=== PATIENT | female | born 1970 | race Caucasian/White ===

== ENCOUNTER 2018-08-14 19:04 | Emergency (ER) | payer OTHER ==
[~2018-08-14] VITALS: Ht 152.4 cm; Wt 108.9 kg
[2018-08-14] MEDS ORDERED: TOPAMAX50 MG PO (19:17)
[2018-08-14] MEDS ORDERED: ADDERALL 20 MG20 M1 PO (19:17)
[2018-08-14] MEDS ORDERED: CYMBALTA60 MG PO (19:17)
[2018-08-14] MEDS ORDERED: LAMICTAL200 MG PO (19:17)
[2018-08-14 20:58] VITALS: BP 139/92
[2018-08-15] MEDS ORDERED: FA-80.8 MG PO (13:43)
[2018-08-15] MEDS ORDERED: BUSPIRONE HCL10 MG PO (13:43)
[2018-08-15] MEDS ORDERED: NORCO 5-325 TA1 EACH PO (13:57)
[2018-08-15] MEDS ORDERED: NABUMETONE 750750 M1 PO (13:57)
[2018-08-15] MEDS ORDERED: CLEOCIN HCL300 MG PO (13:57)
== END 2018-08-14 20:58 | disposition left against medical advice (07) ==
LOC: M.ERS 19:04
DX: Z53.21 Procedure and treatment not carried out due to patient leaving prior to being seen by health care provider (principal)